=== PATIENT | male | born 1950 | race Caucasian/White ===

== ENCOUNTER 2020-04-26 11:33 | Outpatient (CLI) | payer MEDICARE | END 2020-04-26 11:34 | disposition home or self-care (01) | LOC: BURRAD 11:33 | PROVIDERS: ATTEND Family Medicine | DX: R05 Cough (principal) | CPT/HCPCS: 71046 ==

== ENCOUNTER 2021-08-13 16:41 | Outpatient (CLI) | payer MEDICARE | END 2021-08-13 16:42 | disposition home or self-care (01) | LOC: BURLAB 16:41 | PROVIDERS: ATTEND Family Medicine | DX: Z01.812 Encounter for preprocedural laboratory examination (principal) | CPT/HCPCS: 36415; 82565 ==

== ENCOUNTER 2021-08-14 09:42 | Outpatient (CLI) | payer MEDICARE ==
[2021-08-14] MEDS ORDERED: Iopamidol 370 76% 100 ML VIAL FS ONE (09:43)
== END 2021-08-14 09:43 | disposition home or self-care (01) ==
LOC: BURCT 09:42
PROVIDERS: ATTEND Family Medicine
DX: R10.9 Unspecified abdominal pain (principal)
CPT/HCPCS: 74177; Q9967

== ENCOUNTER 2023-09-15 11:43 | Outpatient (CLI) | payer MEDICARE ==
[2023-09-15 12:10] LABS: Hematocrit 49.6 % (42.0-52.0); Hemoglobin 16.1 g/dL (14.0-18.0)
== END 2023-09-15 11:44 | disposition home or self-care (01) ==
LOC: BURRAD 11:43
PROVIDERS: ATTEND Nurse Practitioner Family
DX: R09.89 Other specified symptoms and signs involving the circulatory and respiratory systems (principal); E29.1 Testicular hypofunction; R97.20 Elevated prostate specific antigen [PSA]
CPT/HCPCS: 36415; 71046; 82670; 84153; 84403; 85014; 85018